=== PATIENT | female | born 1990 | race Hispanic/Latino ===

== ENCOUNTER 2016-07-31 18:01 | Emergency (ER) | payer OTHER ==
[~2016-07-31] VITALS: Ht 165.1 cm; Wt 90.6 kg
[~2016-07-31 18:01] MED LIST: PREN1TAB80 PO
[2016-07-31 18:07] VITALS: BP 142/67; PULSE 111; RESP 18; O2SAT 95
[2016-07-31 19:45] LABS: BASOPHILS % (AUTO) 0.2 % (0-3); MONOCYTES % (AUTO) 9.2 % (4-12); Mean Corpuscular Hemoglobin 30.2 pg (27.0-35.0); Mean Corpuscular Volume 88.5 fL (81-100); NEUTROPHILS % (AUTO) 70.8 % (40-74); Platelet Count 216 bil/L (150-400)
[2016-07-31 20:08] LABS: Magnesium 1.7 mg/dL (1.6-2.6)
--- NOTE | 2016-07-31 20:18 | ED.REPORT ---
HPI-General Illness Date of Service Jul 31, 2016 ED Provider: Nancy PittsO. A healthy 26 year old female at 16 weeks presents to the ED with nausea and vomiting onset yesterday. Associated symptoms include upper abdominal pain and diarrhea. The patient denies vaginal discharge or fever. Nursing Notes Stated Complaint: ABD PAIN,LIGHT HEADED, V/D, 16 WKS PREG - [facility]BC MELANI Chief Complaint: Female Abdominal Pain Nursing Notes Reviewed: Yes Allergies: Coded Allergies: No Known Allergies (Unverified Allergy, Unknown, 07/31/16) Scheduled Vits W-Ca,Fe,FA(<1Mg) ( Vitamins) 1 Each Tablet 1 EACH PO DAILY General Time Seen by MD: 20:18 Chief Complaint Vomiting Hx Obtained From: Patient Arrived By: Walk-in Sudden in Onset?: Yes Onset Occurred: Yesterday Symptom Duration: Since onset Location: : Abdomen Quality: Painful Severity: Current: Moderate Severity: Maximum: Moderate Associated with: Reports: Abdominal pain, Denies: Fever Pertinent Negative: Relieved by nothing Recent Healthcare: No recent doctor visit Similar Sx Previous: Yes Past Medical History Past Medical History Notes: No OB doctor Past Medical History Pt denies Past Surgical History Pt denies Smoking History Never Smoker Social History Alcohol Use: Denies alcohol use Drug Use: Denies drug use Other Social History: Good social support Ambulatory Status Independent Review of Systems Full Review of Systems Constitutional: Denies: Fever Respiratory: Denies: Non-productive cough, Shortness of breath GI: Reports: Abdominal pain (Upper), Diarrhea, Nausea, Vomiting Female: Denies: Vaginal discharge Complete sys rev & neg: except as marked. Physical Exam Vital Signs Vital Signs Date Time Temp Pulse Resp B/P Pulse Ox O2 Delivery O2 Flow Rate FiO2 07/31/16 22:44 88 16 132/82 99 Room Air 07/31/16 20:54 93 20 115/54 96 Room Air 07/31/16 18:07 36.9 111 18 142/67 95 Room Air Initial VS: Reviewed Head / Eyes: Atraumatic, Normocephalic ENT: Conjunctiva normal, No scleral icterus Neck: Supple, Full range of motion Respiratory: Breath sounds normal, Clear to auscultation, No respiratory distress Cardiovascular: Regular rate & rhythm, Heart sounds normal Abdomen / GI: Soft, Non-tender Skin: Warm, Dry, No cyanosis Neurologic: Alert, Oriented, Nonfocal Psychiatric: Mood/affect normal, Behavior normal, Normal thought content General/Constitutional: Awake, Alert, No acute distress Interpretation & Diagnostics Bedside US performed by ED physician: Reassuring for normal intrauterine , heart tones 150, good movement, normal amount of amniotic fluid, normal placenta Normal gallbladder visualized, no gallstones visualized, no pericholecystic fluid, no sonographic Villalobos's sign URINE DIPSTICK 1.015 sp gravity 5 pH 250 blood otherwise negative Lab Results Interpretation Result Diagram: 07/31/16193407/31/161934 Test 07/31/16 19:34 07/31/16 19:35 07/31/16 20:15 07/31/16 20:31 Hold Price Top Tube Received (Received) White Blood Count 5.8th/mm3 (3.8-10.1) Red Blood Count 4.10mil/mm3 (3.90-5.20) Hemoglobin 12.4g/dL (12.0-15.6) Hematocrit 36.3% (35.0-46.0) Mean Corpuscular Volume 88.5fL (81-100) Mean Corpuscular Hemoglobin 30.2pg (27.0-35.0) Mean Corpuscular Hemoglobin Concent 34.2% (32.0-37.0) Red Cell Distribution Width 13.2% (12.3-15.4) Platelet Count 216bil/L (150-400) Neutrophils (%) (Auto) 70.8% (40-74) Lymphocytes (%) (Auto) 18.5% (14-46) Monocytes (%) (Auto) 9.2% (4-12) Eosinophils (%) (Auto) 1.0% (0-5) Basophils (%) (Auto) 0.2% (0-3) Sodium Level 133mEq/L (134-144) Potassium Level 3.8mEq/L (3.5-5.2) Chloride Level 101mEq/L (97-108) Carbon Dioxide Level 19mmol/L (18-29) Blood Urea Nitrogen 4mg/dL (6-20) Creatinine 0.32mg/dL (0.57-1.00) Estimat Glomerular Filtration Rate 360mL/min (>59) Glucose Level 93mg/dL (60-99) Calcium Level 8.3mg/dL (8.5-10.1) Magnesium Level 1.7mg/dL (1.6-2.6) Total Bilirubin 0.2mg/dL (0.0-1.2) Aspartate Amino Transf (AST/SGOT) 16U/L (0-50) Alanine Aminotransferase (ALT/SGPT) 9U/L (0-32) Alkaline Phosphatase 70U/L (25-150) Total Protein 6.8g/dL (6.4-8.4) Albumin 3.3g/dL (3.4-5.0) Lipase 16U/L (13-60) Hold Urine Received (Received) Urine Color Yellow (YELLOW) Urine Appearance Clear (CLEAR,HAZY) Urine pH 6.0 (5.0-8.0) Urine Specific [place] 1.010 (1.003-1.035) Urine Protein Negativemg/dL (NEG,TRACE) Urine Glucose (UA) Negativemg/dL (NEGATIVE) Urine Ketones Negativemg/dL (NEGATIVE) Urine Occult Blood Moderate (NEGATIVE) Urine Nitrite Negative (NEGATIVE) Urine Bilirubin Negative (NEGATIVE) Urine Urobilinogen Normalmg/dL (NORMAL) Urine Leukocyte Esterase Negative (NEGATIVE) Urine RBC 0-2/hpf (0-2) Urine WBC 0-5/hpf (0-5) Urine Epithelial Cells None/hpf (NONE-MOD) Urine Crystals None seen (NONE SEEN) Urine Bacteria Few/hpf (NONE-FEW) Urine Hyaline Casts None/lpf (NONE) Urine Granular Casts None seen (NONE SEEN) Urine Waxy Casts None seen (NONE SEEN) Urine Red Blood Cell Casts None seen (NONE SEEN) Urine White Blood Cell Casts None seen (NONE SEEN) Urine Mucus None seen (None Seen) Urine Trichomonas None seen (NONE SEEN) Urine Yeast None (NONE SEEN) Urinalysis Comment None Urine Culture Reflexed Not indicated Re-Eval/Medical Decision Time of Eval: 20:40 Re-Evaluation/Progress Note: Bedside US performed. Discussed with patient lab results, diagnosis, and plan for discharge. Follow-up and return to the ER instructions given. Patient agrees with plan for care and all questions were addressed. Counseled Regarding: Diagnosis, Lab results, Need for follow-up, When/why to return to ED Discharge & Departure Primary Impression: Vomiting and diarrhea Disposition: Home Discharge Condition All VS Reviewed: Yes Condition: Stable Patient Instructions: Acute Diarrhea (ED), Acute Nausea and Vomiting (ED) Additional Instructions: Thank you for entrusting us with your care. Your lab work and ultrasound today were reassuring. Please take Zofran, one every eight hours as prescribed. 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 Return to the ER with any new or worsening symptoms. Referrals: NOPCP (PCP) [facility] Scribe Attestation Portions of this note were transcribed by Bronwyn Plascencia. I, Dr. Duran, personally performed the history, physical exam, and medical decision-making; I reviewed and confirmed the accuracy of the information in the transcribed note. Signed by: Amrit Romero, 07/31/2016, 23:52 copies to: [facility] Shiva Duran DO Jul 31, 2016 20:18 BRONWYN PLASCENCIA Jul 31, 2016 20:49
[2016-07-31] MEDS ORDERED: Ondansetron 2 mg/mL 2 mL Inj IVPUSH PRN (20:20)
[2016-07-31] MEDS ORDERED: 0.9% Sodium Chloride 1,000 ML IV SCH (20:20)
[2016-07-31] MEDS ORDERED: HYDROmorphone 0.5 mg/0.5 mL iSecure Syringe IVPUSH PRN (20:20)
[2016-07-31 20:54] VITALS: BP 115/54; PULSE 93; RESP 20; O2SAT 96
[2016-07-31 21:04] LABS: APPEARANCE,URINE CLEAR (CLEAR,HAZY); COLOR,URINE YELLOW (YELLOW)
[2016-07-31 21:06] LABS: OCCULT BLOOD,URINE MODERATE (NEGATIVE); UROBILINOGEN,URINE NORMAL (NORMAL)
[2016-07-31] MEDS ORDERED: _Ondansetron ODT 4 mg Tablet PO PRN (21:55)
[2016-07-31 22:44] VITALS: BP 132/82; PULSE 88; RESP 16; O2SAT 99
== END 2016-07-31 22:45 | disposition home or self-care (01) ==
LOC: SED 18:01
DX: O21.0 Mild hyperemesis gravidarum (principal); O26.892 Other specified pregnancy related conditions, second trimester; R19.7 Diarrhea, unspecified; R10.10 Upper abdominal pain, unspecified; Z3A.16 16 weeks gestation of pregnancy
CPT/HCPCS: 36415; 80053; 81000; 81025; 83690; 83735; 85025; 96361; 96374; 96375; 99285; J1170; J2405; J7030

== ENCOUNTER 2016-12-04 18:09 | Emergency (ER) | payer OTHER ==
[~2016-12-04] VITALS: Ht 165.1 cm; Wt 97.0 kg
[2016-12-04 18:21] VITALS: BP 114/70; RESP 16; O2SAT 99
--- NOTE | 2016-12-04 18:51 | ED.REPORT ---
HPI-Ear Pain/Problem/FB Date of Service December 04, 2016 ED Provider: Shiva Duran DO 26 y/o female, 8 months with no pertinent hx presents to the ED complaining of right ear pain, onset 4 months ago. The pt states she came in to the ED today because she "got tired of the pain". She denies ear discharge but states her doctor reported seeing some fluid in the ear. She has not had her flu shot for this season. Nursing Notes Stated Complaint: THROAT AND EARACHE Chief Complaint: ENT & Mouth Nursing Notes Reviewed: Yes Allergies: Coded Allergies: No Known Allergies (Unverified Allergy, Unknown, 12/04/16) Scheduled Vits W-Ca,Fe,FA(<1Mg) ( Vitamins) 1 Each Tablet 1 EACH PO DAILY General Time Seen by MD: 18:50 Chief Complaint Ear problem right Hx Obtained From: Patient Arrived By: Walk-in Onset Occurred: More than a week ago... (4 months) Symptom Duration: Since onset Location: : Ear canal Quality: Painful Severity: Current: Mild Severity: Maximum: Mild Recent Healthcare: No recent doctor visit Similar Sx Previous: No Past Medical History Past Medical History Notes: No OB doctor Past Medical History Pt denies Past Surgical History Pt denies Smoking History Never Smoker Social History Alcohol Use: Denies alcohol use Drug Use: Denies drug use Other Social History: Good social support Ambulatory Status Independent Review of Systems Ears / Nose / Throat: Reports: Earache right, Denies: Ear drainage right Complete sys rev & neg: except as marked. Additional Review of Systems Eyes: Denies: Blurred right GI: Denies: Abdominal pain Female: Denies: Dysuria, Flank pain Musculoskeletal: Denies: Back pain Physical Exam Flu screen = negative Initial Vital Signs Vital Signs (First) Date Time Temp Pulse Resp B/P Pulse Ox O2 Delivery O2 Flow Rate FiO2 12/04/16 18:21 36.9 103 16 114/70 99 Room Air Initial VS: Reviewed Head / Eyes: Atraumatic, Normocephalic Neck: Supple, Full range of motion Respiratory: Breath sounds normal, Clear to auscultation, No respiratory distress Cardiovascular: Regular rate & rhythm, Heart sounds normal, Intact distal pulses Abdomen / GI: Soft, Non-tender Extremities: Vascular intact, Neuro intact, No swelling, No tenderness Skin: Warm, Dry, No cyanosis Neurologic: Alert, Oriented, Nonfocal General/Constitutional: Awake, Alert, No acute distress, Cooperative ENT: Atraumatic Right Ear / Mastoid: Positive: Fluid behind TM clear Left ear erythematous. Throat erythematous. Soft palate. Re-Eval/Medical Decision Med Decision/Clinical Course The ear appears infected as does her throat. Strep swab was negative however I think is prudent to treat her with course of amoxicillin for the otitis. Tylenol as directed for pain. Recommend she be evaluated labor and delivery routine evaluation. Re-Evaluation/Progress : Time of Eval: 19:00 Re-Evaluation/Progress Note: Rechecked pt. Discussed lab results and diagnosis. Informed the pt of the plan to discharge. Pt understands and agrees with plan. F/U instructions and RTER warning given. All questions addressed. Counseled Regarding: Diagnosis, Lab results, Need for follow-up, When/why to return to ED Discharge & Departure Primary Impression: Pharyngitis Pharyngitis/tonsillitis etiology: unspecified etiology Qualified Code: J02.9 - Acute pharyngitis, unspecified Additional Impression: Otitis media Otitis media type: suppurative Laterality: left Chronicity: acute Recurrence: not specified as recurrent Spontaneous tympanic membrane rupture: without spontaneous rupture Qualified Code: H66.002 - Acute suppurative otitis media without spontaneous rupture of ear drum, left ear Disposition: Home Patient Instructions: Pharyngitis (ED), Tonsillitis (ED) Additional Instructions: The strep screen was negative however your ears and throat are infected. Take Amoxicillin 3 times daily for 10 days. Take Acetaminophen as directed for pain. Proceed to labor and delivery for evaluation after the emergency department discharge. 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 Return if any problems or any new or worsening symptoms. Let your doctor know that you are on the antibiotics. Referrals: Emely Elder MD copies to: Emely Elder MD, Todd P DO December 04, 2016 18:51 Mahad Ryan December 04, 2016 18:57
[2016-12-04 20:47] VITALS: BP 122/72; PULSE 78; RESP 14; O2SAT 98
== END 2016-12-04 20:51 | disposition home or self-care (01) ==
LOC: SED 18:09
DX: O99.513 Diseases of the respiratory system complicating pregnancy, third trimester (principal); J02.9 Acute pharyngitis, unspecified; O26.893 Other specified pregnancy related conditions, third trimester; H66.002 Acute suppurative otitis media without spontaneous rupture of ear drum, left ear; Z3A.35 35 weeks gestation of pregnancy